=== PATIENT | female | born 1990 ===

== ENCOUNTER 2016-06-17 17:25 | Outpatient (CLI) | payer OTHER ==
[2016-06-17] MEDS ORDERED: MONI4CRE3 PV (17:39)
[2016-06-17] MEDS ORDERED: PRENTAB9 PO (17:39)
[2016-06-17] MEDS ORDERED: IRON65TA PO (17:39)
[2016-06-17 18:10] LABS: MEAN CORPUSCULAR HEMOGLOBIN 33.9 pg (27.0-33.0); MEAN CORPUSCULAR HGB CONC 35.4 g/dl (32.0-36.5); MEAN CORPUSCULAR VOLUME 95.8 fl (80.0-96.0); RED CELL DISTRIBUTION WIDTH 12.7 % (11.5-14.5); WHITE BLOOD COUNT 7.6 K/mm3 (4.0-10.0)
[2016-06-17 18:44] LABS: ALBUMIN 2.6 GM/DL (3.2-5.2); ALKALINE PHOSPHATASE 62 U/L (45-117); ALT/SGPT 9 U/L (12-78); ANION GAP 8 MEQ/L (8-16); AST/SGOT 9 U/L (15-37); BILIRUBIN,TOTAL 0.1 MG/DL (0.2-1.0); BLOOD UREA NITROGEN 9 MG/DL (7-18); CALCIUM LEVEL 8.3 MG/DL (8.5-10.1); CARBON DIOXIDE LEVEL 25 MEQ/L (21-32); CHLORIDE LEVEL 106 MEQ/L (98-107); CREATININE FOR GFR 0.43 MG/DL (0.55-1.02); GLOMERULAR FILTRATION RATE > 60.0 (>60); GLUCOSE, FASTING 69 MG/DL (70-105); POTASSIUM SERUM 3.8 MEQ/L (3.5-5.1); SODIUM LEVEL 139 MEQ/L (136-145); TOTAL PROTEIN 6.3 GM/DL (6.4-8.2)
== END 2016-06-17 21:10 | disposition home or self-care (01) ==
LOC: M LDO 17:25
PROVIDERS: ATTEND Obstetrics & Gynecology
DX: O99.89 Other specified diseases and conditions complicating pregnancy, childbirth and the puerperium (principal); R19.7 Diarrhea, unspecified; R42 Dizziness and giddiness; Z3A.25 25 weeks gestation of pregnancy

== ENCOUNTER 2016-10-01 00:14 | Outpatient (CLI) | payer OTHER ==
[~2016-10-01] VITALS: Ht 170.2 cm; Wt 86.0 kg
[~2016-10-01 00:14] MED LIST: IRON65TA PO; MONI4CRE3 PV; PRENTAB9 PO
[2016-10-01 00:32] VITALS: BP 119/62
== END 2016-10-01 00:50 | disposition home or self-care (01) ==
LOC: M LDO 00:14
PROVIDERS: ATTEND Obstetrics & Gynecology
DX: O47.1 False labor at or after 37 completed weeks of gestation (principal); Z3A.40 40 weeks gestation of pregnancy

== ENCOUNTER 2016-10-02 01:33 | Inpatient (IN) | payer OTHER ==
[~2016-10-02] VITALS: Ht 170.2 cm; Wt 87.0 kg
[2016-10-02] MEDS ORDERED: PENICILLIN G POTASSIUM 5 MU VIAL As Ordered ONE (02:02)
[2016-10-02] MEDS ORDERED: LR 1,000 ML IV SCH (02:06)
[2016-10-02] MEDS ORDERED: BUTORPHANOL 2 MG/ML INJ (J0595) As Ordered ONE (02:06)
[2016-10-02] MEDS ORDERED: PENICILLIN G POTASSIUM IV 5 MU in D5W MINI-BAG PLUS 100 ML IV STA (02:06)
[2016-10-02] MEDS ORDERED: NALOXONE INJ 0.4 MG/1 ML VIAL (J2310) As Ordered ONE (02:08)
[2016-10-02] MEDS ORDERED: OXYTOCIN 30 UNITS IN 0.9% NaCl 500ML IV BAG (J2590) As Ordered ONE (02:09)
[2016-10-02 02:10] LABS: BASO % 0.3 % (0.0-1.0); EOS # 0.1 K/mm3 (0.0-0.50); EOS % 0.7 % (0.0-3.0); LARGE UNSTAINED CELL # 0.1 K/mm3 (0.0-0.4); LARGE UNSTAINED CELL % 1.3 % (0.0-4.0); LYMPH # 1.8 K/mm3 (1.5-6.5); LYMPH % 20.3 % (24.0-44.0); MEAN CORPUSCULAR HGB CONC 33.6 g/dl (32.0-36.5); MEAN CORPUSCULAR VOLUME 98.1 fl (80.0-96.0); MONO # 0.6 K/mm3 (0.0-0.8); NEUTROPHILS # 5.8 K/mm3 (1.8-7.7); NEUTROPHILS % 70.3 % (36.0-66.0); PLATELET COUNT, AUTOMATED 148 k/mm3 (150-450); RED CELL DISTRIBUTION WIDTH 12.8 % (11.5-14.5); WHITE BLOOD COUNT 8.2 K/mm3 (4.0-10.0)
[2016-10-02] MEDS ORDERED: BUTORPHANOL 2 MG/ML INJ (J0595) IV ONE (02:15)
[2016-10-02] MEDS ORDERED: OXYTOCIN DRIP 30 UNITS in APPROPRIATE DILUENT 1 EA IV SCH (03:16)
[2016-10-02] MEDS ORDERED: RHOGAM 300 MCG (1500 IU) INJ (J2790) IM SCH (03:30)
[2016-10-02] MEDS ORDERED: MEASLES,MUMPS,RUBELLA VACCINE INJ (MMR-II) (90707) SC SCH (03:30)
[2016-10-02] MEDS ORDERED: DIBUCAINE 1% OINTMENT 30GM TOP PRN (03:30)
[2016-10-02] MEDS ORDERED: PROMETHAZINE 25 MG TAB PO PRN (03:30)
[2016-10-02] MEDS ORDERED: DOCUSATE SODIUM 100 MG CAP PO PRN (03:30)
[2016-10-02] MEDS ORDERED: ACETAMINOPHEN 650 MG SUPP PR PRN (03:30)
[2016-10-02] MEDS ORDERED: miSOPROStol 200 MCG TAB (S0191) PR ONE (03:30)
[2016-10-02] MEDS ORDERED: METHYLERGONOVINE MALEATE 0.2 MG TAB PO PRN (03:30)
[2016-10-02] MEDS: IBUPROFEN 800 MG TAB PO PRN ×2 (04:51→16:35)
[2016-10-02 06:02] VITALS: BP 115/60
[2016-10-02] MEDS ORDERED: PENICILLIN G POTASSIUM IV 2.5 MU in D5W 100 ML IV SCH (06:15)
[2016-10-02] MEDS: ACETAMINOPHEN TAB 650MG DOSE (2X325MG) PO PRN ×2 (07:52→21:39)
[2016-10-02] MEDS: PRENATAL VITAMIN TAB PO SCH (07:52)
[2016-10-02 18:12] VITALS: BP 111/62
[2016-10-03] MEDS: IBUPROFEN 800 MG TAB PO PRN (02:36)
[2016-10-03 05:53] VITALS: BP 121/65
[2016-10-03] MEDS ORDERED: TYLE325T5 PO (07:33)
[2016-10-03] MEDS ORDERED: MOTR200T44 PO (07:33)
[2016-10-03] MEDS ORDERED: TYLE325T5 PR (07:33)
[2016-10-03] MEDS ORDERED: DIBU1OI TOP (07:33)
[2016-10-03] MEDS: PRENATAL VITAMIN TAB PO SCH (10:04)
--- NOTE | 2016-10-03 20:45 | DSES ---
DATE OF ADMISSION: 10/02/2016 DATE OF DISCHARGE: 10/03/2016 This lady is a 25-year-old 3 now para 3 admitted at 40-5/7 weeks of gestation in precipitous labor, had a precipitous delivery of a live male infant 10 pounds 2 ounces, 4582 grams, scores of 7 and 9 at 1 and 5 minutes, respectfully. Cord around the neck once loose. She had an atonic uterus requiring Cytotec and Pitocin. She is GBS positive and believe she was not treated in time. We discussed phlebitis, cystitis, mastitis, endometritis and cellulitis, diet, exercise, pain management, perineal, breast and wound care. She is planning on Nexplanon at her 6-week checkup. Presently she is normocephalic, atraumatic. Neck full range of motion. Pupils equal and reactive to light. Distal pulses symmetric. Chest is clear bilaterally to bases. No wheezes or rhonchi. No CVA tenderness. Uterus two below. Lochia is moderate. Perineum is intact. Four quadrant bowel sounds are noted. She has no rashes, lesions or pruritus. No arthralgia or myalgia. No complaints of cough, wheezes, shortness of breath or dyspnea on exertion. No chest pain. Not bleeding. Neurologically complete. No incontinence, urgency or frequency. No nausea, vomiting, diarrhea or constipation. No diabetic issues. No past medical or surgical of consequence. No family history. She does not smoke, drink or abuse drugs. She is . There is no domestic violence. In summary we have a precipitous delivery of a live male infant to be discharged today. Her hemoglobin was 14.1, hematocrit 42.0 and platelets were 148. Her vital signs on discharge, blood pressure 121/65, respirations 18, pulse 74, temperature 98.2. She was given her medications and discharge instructions for 6 weeks checkup with pelvic rest.
== END 2016-10-03 10:53 | disposition home or self-care (01) | DRG 775 ==
LOC: M LDO 01:33 → M LDI 01:42 → M OBS 06:01
PROVIDERS: ADMIT Advanced Practice Midwife; ATTEND Advanced Practice Midwife
PROC: 10E0XZZ Delivery of Products of Conception, External Approach (ICD-10-PCS; principal; 2016-10-02)
PROC: 10907ZC Drainage of Amniotic Fluid, Therapeutic from Products of Conception, Via Natural or Artificial Opening (ICD-10-PCS; 2016-10-02)
DX: O62.3 Precipitate labor (principal); O99.824 Streptococcus B carrier state complicating childbirth; Z3A.40 40 weeks gestation of pregnancy; O48.0 Post-term pregnancy; O69.81X0 Labor and delivery complicated by cord around neck, without compression, not applicable or unspecified; O75.89 Other specified complications of labor and delivery; Z37.0 Single live birth